=== PATIENT | female | born 1995 | race Caucasian/White ===

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

== ENCOUNTER 2017-04-24 12:46 | Inpatient (IN) | payer OTHER ==
[~2017-04-24] VITALS: Ht 165.1 cm; Wt 83.0 kg
[~2017-04-24 12:46] MED LIST changes: +CIPRO500 M1 PO; +KEFLEX500 M1 PO; +PYRIDIUM200 M1 PO
[2017-04-24 15:40] VITALS: BP 130/77
[2017-04-24 16:05] LABS: ABSOLUTE BASOPHIL COUNT 0 /CUMM (0.0-0.2); ABSOLUTE EOSINOPHIL COUNT 0 /CUMM (0.0-0.7); ABSOLUTE GRANULOCYTE CT 16.9 /CUMM (1.4-6.5); ABSOLUTE LYMPH COUNT 1.4 /CUMM (1.2-3.4); ABSOLUTE MONOCYTE COUNT 0.5 /CUMM (0.10-0.60); BASOPHIL % 0.1 % (0.0-2.0); EOSINOPHIL % 0.1 % (0-5); MEAN CORPUSCULAR HGB CONC 31.4 G/DL (33.0-37.0); MEAN CORPUSCULAR VOLUME 73.4 FL (81.0-99.0); MEAN PLATELET VOLUME 7.4 FL (7.4-10.4); PLATELET COUNT 504 /CUMM (130-400); RED BLOOD CELL CT 4.22 /CUMM (4.20-5.40); WHITE BLOOD CELL COUNT 18.9 /CUMM (4.8-10.8)
[2017-04-24 16:32] LABS: GRANULOCYTE % 89.5 % (42.2-75.2)
--- NOTE | 2017-04-25 01:39 | History & Physical ---
General Information and HPI MD Statement: I have seen and personally examined COLIN STEVENS and documented this H&P. The patient is a 21 year old female at [] weeks and [] days gestation who presented with a chief complaint of []. Source of Information: patient, old records Exam Limitations: no limitations History of Present Illness: The patient is a 21 year old female at 37 weeks and 6 days gestation who presented with a chief complaint of ctx and LOF, clr. Evaluated in CBC and noted to be 2cm, amnisure neg. Prior to d/c pt c/o LOF and 2nd amnisure sent and was pos@ 2p. GBS pos NO F/C. No VB. +FM. 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 Last Menstrual Period: 08/02/16 Estimated Delivery Date: 05/09/17 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 History: vtop 13.3wks, anomal pentalogy of caio Medical History Neurological: NONE EENT: NONE Cardiovascular: NONE Respiratory: asthma (albuterol prn) Gastrointestinal: NONE Hepatic: NONE Renal: NONE Musculoskeletal: NONE Psychiatric: NONE Endocrine: NONE Blood Disorders: NONE Cancer(s): NONE 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 Surgical History Pertinent Surgical History: D&C Past Family/Social History Psychosocial History Smoking Status: Former Smoker Other Social History: FOB is pt's 3rd cousin Exam & Diagnostic Data Last 24 Hrs of Vital Signs/I&O Vital Signs Date Time Temp Pulse Resp B/P B/P Pulse O2 O2 Flow FiO2 Mean Ox Delivery Rate 03/03 1540 130/77 Intake & Output 03/04 0800 04/25 0000 04/24 1600 Intake Total Output Total Balance Patient 183 lb Weight Obstetric Exam Wgt Gained During : 50# Pelvimetry: adequate Dilation (cm): 3 Effacement (%): 90 Station: -2 Membranes: SROM Fluid: clear Fundal Height (cm): 37 Multiple Gestation? No Contractions: q5 Infant #1 - FHR Baseline: 150 Category: 1 Estimated Weight: 3200 Presentation: vtx Patient for Induction? No Physical Exam: NAD Abd soft nt gravid Ext nt no edema Labs Blood Type & Rh: B pos Antibody Screen: neg Hct/Hgb & Platelets #1: 12.7 / 40, 282 Hct/Hgb & Platelets #2: 10.3 / 33.1, 310 Rubella: imm VDRL #1: neg VDRL #2: neg HbsAg: neg HIV #1: neg HIV #2 neg 1 Hr P Group B Strep: pos Initial Ultrasound: 10/06 siup 8+4 Anatomy Ultrasound: wnl except SUA Ultrasound for EFW: 04/07 efw 60%, 2605gr Genetic Testing: counsyl wnl Last 24 Hrs of Labs/Ok: Laboratory Tests 04/24/17 1549: CBC w Diff NO MAN DIFF REQ, RBC 4.22, MCV 73.4 L, MCH 23.0 L, MCHC 31.4 L, RDW 17.0 H, MPV 7.4, Gran % 89.5 H, Lymphocytes % 7.6 L, Monocytes % 2.7, Eosinophils % 0.1, Basophils % 0.1, Absolute Granulocytes 16.9 H, Absolute Lymphocytes 1.4, Absolute Monocytes 0.5, Absolute Eosinophils 0, Absolute Basophils 0 04/24/17 1510: Membrane Rupture POSITIVE 04/24/17 1345: Urine Color YEL, Urine Clarity CLEAR, Urine pH 6.5, Ur Specific Gully 1.015, Urine Protein NEG, Urine Ketones NEG, Urine Nitrite NEG, Urine Bilirubin NEG, Urine Urobilinogen 0.2, Ur Leukocyte Esterase NEG, Ur Microscopic EXAM NOT REQUIRED, Urine Hemoglobin NEG, Urine Glucose NEG 04/24/17 1300: Membrane Rupture NEGATIVE Assessment/Plan Assessment/Plan: 21yo P0 37+wks SROM 2p, GBS pos, afeb, no e/o chorio, latent labor, and maternal status reassuring -Extensive d/w pt and family re: minimal cahnge over 12 hrs since ROM. Agree to recommendation of pitocin augmentation. -cont monitoring -Ancef GBS proph -pain mgmt prn -ANSVD As Ranked By This Provider Problem List: 1. Core Measures Venous Thromboembolism VTE Risk Factors / No Mechanical VTE Prophylaxis d/t Early Ambulation No VTE Pharm Prophylaxis d/t LowRisk-No Interven Req'd Attending MD Review Statement Attending Statement Attending MD Statement: examined this patient, discussed with family, discussed w/nursing
--- NOTE | 2017-04-25 08:02 | Labor & Delivery Summary ---
Delivery Summary Vaginal Delivery: Vaginal: spontaneous Episiotomy/Lacerations: Episiotomy/Lacerations: 1st deg Placenta: Placenta: spontanteous, 2 vc Anesthesia: block Cord PH Value: 7.26, 7.34 Apgars - 1 Min: 8 Apgars - 5 Min: 9 Additional Comments: Controlled at 707a. Pt Pushing x 1 hr with epidural. Head delivered from RAMSEY. No nuchal cord. Mouth and nose bulb suctioned. Slow delivery of shoulders with poor maternal expulsive efforts. 2 min delay from vertex to delivery of baby. Relieved with Letty and suprapubic pressure. to mom's chest. Spontaneous cry noted. Cord clamped and cut. 2vc plac del spont intact. Cord gases sent. 1st deg lac repaired usual fashion 2-0vic. Excellent hemostasis. Fundus contracted well. EBL 200cc. Pt tolerated well. Baby and mom stable in delivery room.
[2017-04-26 08:03] LABS: ABSOLUTE BASOPHIL COUNT 0 /CUMM (0.0-0.2); ABSOLUTE EOSINOPHIL COUNT 0.1 /CUMM (0.0-0.7); ABSOLUTE GRANULOCYTE CT 9.4 /CUMM (1.4-6.5); ABSOLUTE LYMPH COUNT 2.1 /CUMM (1.2-3.4); ABSOLUTE MONOCYTE COUNT 0.8 /CUMM (0.10-0.60); BASOPHIL % 0.2 % (0.0-2.0); EOSINOPHIL % 0.6 % (0-5); GRANULOCYTE % 76.1 % (42.2-75.2); HEMATOCRIT 27.6 % (37-47); MEAN CORPUSCULAR HGB 23.5 PG (27.0-31.0); MEAN CORPUSCULAR VOLUME 73.4 FL (81.0-99.0); MEAN PLATELET VOLUME 7.6 FL (7.4-10.4); PLATELET COUNT 416 /CUMM (130-400); RBC DISTRIBUTION WIDTH 16.5 % (11.5-14.5); RED BLOOD CELL CT 3.75 /CUMM (4.20-5.40); WHITE BLOOD CELL COUNT 12.3 /CUMM (4.8-10.8)
--- NOTE | 2017-04-26 09:42 | PN- Post Delivery/GYN ---
Subjective Subjective: pt is sleeping, no complaints Review of Systems Constitutional: Reports: no symptoms. EENTM: Reports: no symptoms. Cardiovascular: Reports: no symptoms. Respiratory: Reports: no symptoms. Gastrointestinal: Reports: no symptoms. Genitourinary: Reports: see HPI. Musculoskeletal: Reports: back pain. All Other Systems: Reviewed and Negative Objective Last 24 Hrs of Vital Signs/I&O VSS General: NAD CV RRR Lungs CTA b/L Abdomen: soft, nontender, uterus firm, fundus below umbilicus, lochia mild Ext: DCT (-) Current Medications: Current Medications Sig/Teresa Start time Last Medication Dose Route Stop Time Status Admin Acetaminophen 650 MG Q4P PRN 04/25 1145 AC / PO 1145 Cefazolin Sodium 1,000 MG Q8H 04/25 0200 AC 04/25 IV 0141 Docusate Sodium 100 MG BID PRN / 0815 AC 04/25 PO 2311 Ferrous Sulfate 325 MG BID 04/25 1000 AC / PO 2104 Ibuprofen 800 MG Q6P PRN 04/25 0815 AC 04/26 PO 0817 Lactated Ringer's 1,000 ML Q8H 04/24 1545 AC / IV 0000 Multivitamins 1 TAB DAILY 04/25 1000 AC PO Ondansetron HCl 4 MG Q6P PRN 04/24 1930 AC 04/24 IV 1931 Oxycodone/ 1 TAB Q3P PRN / 0815 AC 04 Acetaminophen PO 2311 Oxytocin 20 UNITS Q5H 04/25 0815 DC / Lactated Ringer's 1,000 ML IV 04/25 1314 0830 Oxytocin 30 UNITS PER PROTOCL 04/25 0115 AC Lactated Ringer's 500 ML IV Last 24 Hrs of Labs/Ok: Laboratory Tests 04/26/17 0735: CBC w Diff NO MAN DIFF REQ, RBC 3.75 L, MCV 73.4 L, MCH 23.5 L, MCHC 32.0 L, RDW 16.5 H, MPV 7.6, Gran % 76.1 H, Lymphocytes % 16.8 L, Monocytes % 6.3, Eosinophils % 0.6, Basophils % 0.2, Absolute Granulocytes 9.4 H, Absolute Lymphocytes 2.1, Absolute Monocytes 0.8 H, Absolute Eosinophils 0.1, Absolute Basophils 0 Assessment/Plan Assessment/Plan 21yo, s/p , PPD#1 1. encourage ambulation 2. pain management as needed 3. RT PP care Problem List: 1. Attending MD Review Statement Attending Statement Attending MD Statement: examined this patient, discussed with nursing
--- NOTE | 2017-04-27 12:00 | PN- OBGYN ---
Surgical Brief Attending Note Brief Attending Note: PT DOING WELL. AMB / VOID / TANIA PO. AFEB, V/SS ABD SOFT NT FF KIRAN MIN LOCHIA EXT NT TR B/L LE ED a/p PPD 2 S/P DOING WELL -D/C HOME W/ F/U 6 WKS -D/C INSTRUCTIONS REVIEWED
[2017-04-27] MEDS ORDERED: IBUPROFEN800 M1 PO (12:05)
== END 2017-04-27 13:30 | DRG 560 ==
LOC: CBCO 12:46 → GNO 15:27
PROVIDERS: Obstetrics & Gynecology
PROC: 0HQ9XZZ Repair Perineum Skin, External Approach (ICD-10-PCS; principal; 2017-04-25)
PROC: 10E0XZZ Delivery of Products of Conception, External Approach (ICD-10-PCS; principal; 2017-04-25)
DX: O70.0 First degree perineal laceration during delivery (principal); Z3A.38 38 weeks gestation of pregnancy; Z37.0 Single live birth; O99.824 Streptococcus B carrier state complicating childbirth; Z88.0 Allergy status to penicillin
CPT/HCPCS: GNOP; GNOS; 36415; 81003; 84112; 87086; 96360; G0463; J0690; J1200; J2405; J3370; J7060; J7120